=== PATIENT | male | born 1990 | race African-American/Black ===

== ENCOUNTER 2018-03-28 23:16 | Inpatient (IN) ==
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
[2018-03-29] MEDS ORDERED: Morphine Inj 4 MG/ML Vial IV.PUSH ONE (02:54)
[2018-03-29] MEDS ORDERED: Morphine Inj 4 MG/ML Vial IM ONE (02:54)
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
[2018-03-29] MEDS ORDERED: Bisacodyl 10 MG Supp RECTAL PRN (03:27)
[2018-03-29] MEDS ORDERED: Acetaminophen 325 MG Tablet PO PRN (03:27)
[2018-03-29] MEDS: Sod Chloride 0.9% Inj 1,000 ML IV.CONT SCH ×3 (04:01→22:38)
[2018-03-29 04:10] LABS: Baso % (Auto) 0.4 % (0.0-2.0); Hematocrit 35.4 % (39.0-51.0); Hemoglobin 11.7 gm/dL (13.0-17.0); Lymph % (Auto) 19.6 % (9.0-44.0); Mean Corpuscular Hemoglobin 27.6 pg (27.0-34.0); Mean Corpuscular Volume 83.7 fL (80.0-100.0); Mono % (Auto) 9.5 % (0.0-8.0); Neut # (Auto) 7.3 th/mm3 (1.8-7.7); Neut % (Auto) 70.5 % (16.0-70.0); Platelet Count 178 th/mm3 (150-450); Red Blood Count 4.23 mil/mm3 (4.50-5.90); Red Cell Distribution Width 13.3 % (11.6-17.2); White Blood Count 10.4 th/mm3 (4.0-11.0)
[2018-03-29 04:18] LABS: Activated Partial Thrombo Time 26.4 sec (24.3-30.1); INR 1.1 Ratio; Prothrombin Time 11.3 sec (9.8-11.6)
[2018-03-29 04:33] LABS: Anion Gap 8 meq/L (5-15); Blood Urea Nitrogen 8 mg/dL (7-18); Calcium 8.5 mg/dL (8.5-10.1); Chloride 109 meq/L (98-107); Glomerular Filtration Rate Greater Than 89 mL/min (>89); Glucose,Random 83 mg/dL (74-106); Potassium 3.4 meq/L (3.5-5.1); Sodium 143 meq/L (136-145)
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
[2018-03-29] MEDS: Morphine Inj 4 MG/ML Vial IV.PUSH PRN ×4 (07:45→20:19)
[2018-03-29] MEDS: Senna/Docusate Sodium 8.6/50 MG Tablet PO SCH ×2 (10:09→20:19)
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
[2018-03-29] MEDS ORDERED: Sodium Chlor 0.9% Inj 500 ML IV.SIG SCH (21:00)
[2018-03-29] MEDS ORDERED: Chlorhexidine Gluconate 2% 1 Pack (2 Cloths) TOPICAL SCH (21:00)
[2018-03-30] MEDS: Morphine Inj 4 MG/ML Vial IV.PUSH PRN ×5 (00:26→20:48)
[2018-03-30] MEDS ORDERED: Chlorhexidine Gluconate 0.12% Liq 15 ML UDC ONE (07:16)
[2018-03-30] MEDS ORDERED: Bupivacaine/Epinephrine Inj 0.25% 50 ML Vial ONE (07:17)
[2018-03-30] MEDS ORDERED: Bupivacaine/Epinephrine 0.5% Inj 50 ML Vial ONE ×2 (08:04→10:41)
[2018-03-30] MEDS ORDERED: Lidocaine 2%/Epinephrine 1:200,000 PF Inj 20 ML Vial ONE (08:05)
[2018-03-30] MEDS ORDERED: fentaNYL Citrate Inj 100 MCG/2 ML Ampul ONE (09:20)
[2018-03-30] MEDS ORDERED: Naloxone Inj 0.4 MG/ML Vial ONE (09:20)
[2018-03-30] MEDS: Senna/Docusate Sodium 8.6/50 MG Tablet PO SCH ×2 (09:29→20:02)
[2018-03-30] MEDS ORDERED: Thrombin Topical Soln 5,000 UNIT Vial TOPICAL ONE (09:56)
[2018-03-30] MEDS ORDERED: Gelatin Size 100 Topical Foam ONE (09:57)
--- NOTE | 2018-03-30 10:35 | P.OP ---
Preoperative Diagnosis: Left mandible angle fracture tooth #17 in the line of fracture Postoperative Diagnosis: carmine Date of procedure: 03/30/18 Procedure: ORIF left mandible angle fracture surgical extraction of tooth #17 Anesthesia: GETA, local (2%lidocaine with 1:100,000 epi 9cc) Surgeon: Lb Farah DMD Advertising Specialist: Jose Brower Estimated blood loss (mL): 10 Pathology: none sent
[2018-03-30] MEDS ORDERED: MethylPREDNISolone Sod Succinate Inj 125 MG/2 ML Vial ONE (10:56)
[2018-03-30] MEDS: MethylPREDNISolone Sod Succinate Inj 125 MG/2 ML Vial IV.PUSH SCH ×2 (11:00→16:33)
[2018-03-30] MEDS: Sod Chloride 0.9% Inj 1,000 ML IV.CONT SCH ×2 (11:35→20:02)
[2018-03-30] MEDS ORDERED: Sod Chloride 0.9% Inj 1,000 ML IV.SIG ONE (12:00)
[2018-03-30] MEDS ORDERED: Succinylcholine Inj 100 MG/5 ML Syringe IV.PUSH ONE (12:00)
[2018-03-30] MEDS ORDERED: Glycopyrrolate Inj 1 MG/5 ML Syringe IV.PUSH ONE (12:00)
[2018-03-30] MEDS ORDERED: Lidocaine PF 1% Inj 5 ML Syringe INFILTRATN ONE (12:00)
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
[2018-03-31] MEDS: Sod Chloride 0.9% Inj 1,000 ML IV.CONT SCH (05:46)
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
[2018-03-31 09:04] VITALS: BP 106/59; PULSE 69; RESP 17; TEMP 97.5; O2SAT 99
[2018-03-31] MEDS: Senna/Docusate Sodium 8.6/50 MG Tablet PO SCH (09:21)
== END 2018-03-31 10:28 | disposition home or self-care (01) ==
LOC: EDBD → NEPC 23:16 → NEDA 03-29 03:21 → N06 03-29 07:28
PROVIDERS: ADMIT Hospitalist; ATTEND Hospitalist
PROC: ORIFMAN (2018-03-30 07:54)

== ENCOUNTER 2018-05-11 04:33 | Inpatient (IN) ==
[2018-05-11] MEDS ORDERED: Morphine Inj 4 MG/ML Vial IV.PUSH ONE (04:49)
[2018-05-11] MEDS ORDERED: Morphine Inj 4 MG/ML Vial ONE (04:50)
[2018-05-11] MEDS ORDERED: Sod Chloride 0.9% Inj 1,000 ML IV.SIG SCH (05:00)
--- NOTE | 2018-05-11 05:09 | XR ---
EXAM DATE: 05/11/2018 4:49 AM EDT AGE/SEX: 27 years / Male INDICATIONS: Chest pain, STEMI-ALERT. CLINICAL DATA: This is the patient's initial encounter. Patient reports that signs and symptoms have been present for 1 day and indicates a pain score of 7/10. MEDICAL/SURGICAL HISTORY: None. None. COMPARISON: No prior exams available for comparison. FINDINGS: A single AP view of the chest demonstrates the lungs to be symmetrically aerated without evidence of mass, infiltrate or effusion. The cardiomediastinal contours are unremarkable. Osseous structures a re intact. CONCLUSION: No acute cardiopulmonary process. Electronically signed by: David Canales MD 05/11/2018 5:08 AM EDT
--- NOTE | 2018-05-11 05:11 | ED ---
HPI General Chief Complaint: STEMI Alert Stated Complaint: Cardiac Time Seen by Provider: 05/11/18 04:49 History of Present Illness HPI narrative: 27-year-old man presents with severe left anterior chest pain with shortness of breath, and diaphoresis, approximately 1 hour prior to arrival. He has no prior history of myocardial infarction or cardiac disease, but patient did have left jaw surgery for a fractured mandible on the left side 2 days ago, and has been having persistent discomfort in the left jaw, left neck and left chest anteriorly since his surgery, but the left chest area discomfort was of significantly less severity, although persistent and tender in the chest area, with some respiratory component. EMS was called, found patient diaphoretic and in acute distress, but vital signs were stable, and EKG reviewed and showed significant ST elevations, patient was transported as a possible STEMI chest pain. On arrival in emergency department patient was in acute discomfort, vital signs are stable, but he had marked anterior chest wall discomfort, but EKG again confirmed ST elevations in the inferior region, with 1-2 mm concave upward elevations, and in the anterior lateral lesion, but these were somewhat different character, suggestive of early repolarization, with J-point elevation and again coved upwards with upright T waves throughout. There is also some suggestion of CO depression, worrisome for pericarditis. Given patient's complicated presentation, along with confounding history of recent mandibular surgery, STEMI alert initiated, and aerial installer, Dr. Oliver, consulted emergently, and after review of x-ray, feels that this may be non- STEMI elevations, and perhaps pericarditis. Positioning changes performed to assess for supporting signs of pericarditis, the patient has significant discomfort in all positions, primarily associated with movements, rather than upright or supine position. There is no other demonstrable change in patient's discomfort. Patient medicated for discomfort, also given initial dose of 324 mg of aspirin. STEMI alert cancelled and remaining care proceeded per normal ED evaluation. Further Related Data Home Medications Medication Instructions Recorded Confirmed No Known Home Medications 05/11/18 05/11/18 Allergies Allergy/AdvReac Type Severity Reaction Status Date / Time No Known Allergies Allergy Unverified 03/29/18 00:05 Review of Systems ROS: all other systems reviewed are negative Constitutional Denies chills and Reports difficulty sleeping ENT Reports facial pain (recent jaw surgery, persistent pain and swelling left mandible) Cardiovascular Reports chest pain (left anterior chest, 2 days; new severe pains onset immediately prior to arrival) Respiratory Denies cough, Reports pain on inspiration, Reports dyspnea and Denies stridor Gastrointestinal Reports system reviewed and no additional complaints, except as docu [facility] Medical History Medical History Patient denies medical problems (Acute) Surgical History Surgical History No history of previous surgery (Acute) Social History Social History Substance History: Active Abuse Second Hand Smoke Exposure: Yes Smoking Status: Current every day smoker Tobacco Type: Cigarettes How Often Do You Have a Drink Containing Alcohol: Never Recent Travel in [facility] within the Last 8 Weeks: No Recent Out of Country Travel within the Last 8 Weeks: No Substance Abuse Detail Marijuana: Substance Use Status: Active Route Used Substance Abuse: Inhalation Immunization History Tetanus Immunization: <5 Years Tetanus Immunization Year if Known: 2018 Hx Influenza Vaccine This Season: No Exam Narrative Exam Narrative: GENERAL: Thin young adult male, well-developed, well-nourished, vital signs are stable, in obvious distress, From pain in jaw and chest. SKIN: Focused skin assessment warm/dry. HEAD: Atraumatic. Normocephalic. EYES: Pupils equal and round. No scleral icterus. No injection or drainage. ENT: Marked left facial pain and swelling, exquisitely tender to palpation in area of recent surgery. No fluctuance, no drainage. No nasal bleeding or discharge. Mucous membranes pink and moist. NECK: Left lateral cervical muscular tenderness to palpationTrachea midline. No JVD. CARDIOVASCULAR: Regular rate and rhythm. No murmur appreciated. CHEST: marked left anterior chest wall tenderness to palpation left pectoralis muscle, extending medially to the sternum. No bony defects, no crepitus RESPIRATORY: No accessory muscle use. Clear to auscultation. Breath sounds equal bilaterally. GASTROINTESTINAL: Abdomen soft, non-tender, nondistended. Hepatic and splenic margins not palpable. MUSCULOSKELETAL: No obvious deformities. No clubbing. No cyanosis. No edema. NEUROLOGICAL: Awake and alert. No obvious cranial nerve deficits. Motor grossly within normal limits. Normal speech. PSYCHIATRIC: Appropriate mood and affect; insight and judgment normal. Course Reevaluation(s) Reevaluation #1: Much more comfortably, asleep at time of examination, discussed results of first round of troponin testing, which was negative. Findings discussed with Dr. Oliver, on-call aerial installer, and we will admit patient for observation for remainder of rule out testing. Time: 06:43 Initial Documented Vital Signs Temperature 98.9 F 05/11/18 04:36 Pulse Rate 109 H 05/11/18 04:36 Respiratory Rate 20 05/11/18 04:36 Blood Pressure 143/83 H 05/11/18 04:36 Pulse Oximetry 98 05/11/18 04:36 Last Documented Vital Signs Temperature 98.9 F 05/11/18 04:36 Pulse Rate 94 H 05/11/18 07:00 Respiratory Rate 16 05/11/18 07:31 Blood Pressure 138/75 05/11/18 07:00 Pulse Oximetry 2 L 05/11/18 07:00 Medical Decision Making MDM Narrative Medical decision making narrative: 27-year-old man with recent jaw surgery has been having minor chest pain over the past couple of days since his operation, but awakened with severe left anterior chest pain and diaphoresis, and had ST elevation found by EMS, with the additional concern for STEMI. Consultation with aerial installer suggest that this may be pericarditis, and ST elevations in the precordial leads suggestive of benign early repolarization, and inferior leads likely reflective of reciprocal changes, but not clearly definitive for STEMI. Initial troponin level was negative, remainder of laboratory evaluation unremarkable, patient's pain controlled with intravenous morphine, and patient was napping comfortably on recheck at 0630 hrs. Findings discussed with on- call aerial installer, Dr. Oliver, and we will limit patient for observation for remainder of cardiac rule out testing. Medical Screen Exam Complete: Yes Emergency Medical Condition: Yes Lab Data Result diagrams: 05/11/18 04:45 Lab Results 05/11/18 05/11/18 05/11/18 Range/Units 04:45 04:45 04:45 WBC 16.5 H (4.0-11.0) th/mm3 RBC 4.64 (4.50-5.90) mil/mm3 Hgb 12.5 L (13.0-17.0) gm/dL POC Hgb (Calc) 12.9 L (13.0-17.0) g/dL Hct 39.6 (39.0-51.0) % POC Hct 38.0 L (39-51.0) % MCV 85.5 (80.0-100.0) fL MCH 27.0 (27.0-34.0) pg MCHC 31.6 L (32.0-36.0) % RDW 13.7 (11.6-17.2) % Plt Count 222 (150-450) th/mm3 MPV 9.8 (7.0-11.0) fL Neut % (Auto) 86.5 H (16.0-70.0) % Lymph % (Auto) 2.9 L (9.0-44.0) % [place] % (Auto) 10.4 H (0.0-8.0) % Eos % (Auto) 0.1 (0.0-4.0) % Baso % (Auto) 0.1 (0.0-2.0) % Neut # (Auto) 14.3 H (1.8-7.7) th/mm3 Lymph # (Auto) 0.5 L (1.0-4.8) th/mm3 [place] # (Auto) 1.7 H (0.0-0.9) th/mm3 Eos # (Auto) 0.0 (0.0-0.4) th/mm3 Baso # (Auto) 0.0 (0.0-0.2) th/mm3 WBC Differential . Differential Comment Auto diff final PT 12.1 H (9.8-11.6) sec INR 1.2 Ratio APTT 38.2 H (24.3-30.1) sec POC Sodium 137 (137-144) mmol/L POC Potassium 3.9 (3.6-5.0) mmol/L POC Chloride 102 (102-111) mmol/L POC BUN 13 (5-21) mg/dL POC Creatinine 0.8 (0.6-1.3) mg/dL POC Glucose 131 H (68-110) mg/dL Calcium 8.7 (8.5-10.1) mg/dL Magnesium 2.2 (1.5-2.5) mg/dL Total Creatine Kinase 152 (39-308) U/L CK-MB (CK-2) Less than 1.0 (0.5-3.6) ng/mL Troponin I Less than 0.02 L (0.02-0.05) ng/mL B-Natriuretic Peptide (0-100) pg/mL 05/11/18 Range/Units 04:45 WBC (4.0-11.0) th/mm3 RBC (4.50-5.90) mil/mm3 Hgb (13.0-17.0) gm/dL POC Hgb (Calc) (13.0-17.0) g/dL Hct (39.0-51.0) % POC Hct (39-51.0) % MCV (80.0-100.0) fL MCH (27.0-34.0) pg MCHC (32.0-36.0) % RDW (11.6-17.2) % Plt Count (150-450) th/mm3 MPV (7.0-11.0) fL Neut % (Auto) (16.0-70.0) % Lymph % (Auto) (9.0-44.0) % Swift % (Auto) (0.0-8.0) % Eos % (Auto) (0.0-4.0) % Baso % (Auto) (0.0-2.0) % Neut # (Auto) (1.8-7.7) th/mm3 Lymph # (Auto) (1.0-4.8) th/mm3 [place] # (Auto) (0.0-0.9) th/mm3 Eos # (Auto) (0.0-0.4) th/mm3 Baso # (Auto) (0.0-0.2) th/mm3 WBC Differential Differential Comment PT (9.8-11.6) sec INR Ratio APTT (24.3-30.1) sec POC Sodium (137-144) mmol/L POC Potassium (3.6-5.0) mmol/L POC Chloride (102-111) mmol/L POC BUN (5-21) mg/dL POC Creatinine (0.6-1.3) mg/dL POC Glucose (68-110) mg/dL Calcium (8.5-10.1) mg/dL Magnesium (1.5-2.5) mg/dL Total Creatine Kinase (39-308) U/L CK-MB (CK-2) (0.5-3.6) ng/mL Troponin I (0.02-0.05) ng/mL B-Natriuretic Peptide 37 (0-100) pg/mL Imaging Data Radiologist's impression: Chest X-Ray 05/11/18 04:49 CONCLUSION: No acute cardiopulmonary process. Discharge Plan Discharge Disposition Patient Disposition: 28 Still Patient Discharge Condition Condition: Stable Discharge Details Diagnosis: Atypical chest pain Physicians Team ED Provider: Carlos Davis Primary Care Provider: Primary Care May Costello Attending Provider: Jd Tenorio Other Providers: Galo Dunlap ED Status: Admitted Observation Patient
[2018-05-11 05:13] LABS: Baso % (Auto) 0.1 % (0.0-2.0); Eos % (Auto) 0.1 % (0.0-4.0); Hematocrit 39.6 % (39.0-51.0); Hemoglobin 12.5 gm/dL (13.0-17.0); Lymph # (Auto) 0.5 th/mm3 (1.0-4.8); Lymph % (Auto) 2.9 % (9.0-44.0); Mean Corpuscular HGB Conc 31.6 % (32.0-36.0); Mean Corpuscular Volume 85.5 fL (80.0-100.0); Mean Platelet Volume 9.8 fL (7.0-11.0); Mono # (Auto) 1.7 th/mm3 (0.0-0.9); Mono % (Auto) 10.4 % (0.0-8.0); Neut # (Auto) 14.3 th/mm3 (1.8-7.7); Neut % (Auto) 86.5 % (16.0-70.0); Platelet Count 222 th/mm3 (150-450); Red Blood Count 4.64 mil/mm3 (4.50-5.90); Red Cell Distribution Width 13.7 % (11.6-17.2); White Blood Count 16.5 th/mm3 (4.0-11.0)
[2018-05-11 05:25] LABS: Activated Partial Thrombo Time 38.2 sec (24.3-30.1); INR 1.2 Ratio; Prothrombin Time 12.1 sec (9.8-11.6)
[2018-05-11 05:27] LABS: Calcium 8.7 mg/dL (8.5-10.1)
[2018-05-11 05:33] LABS: Magnesium 2.2 mg/dL (1.5-2.5)
[2018-05-11 05:35] LABS: Creatine Kinase 152 U/L (39-308)
[2018-05-11] MEDS ORDERED: Morphine Inj 4 MG/ML Vial IV.PUSH PRN (07:46)
[2018-05-11] MEDS: Ketorolac Inj 30 MG/ML (IVP) Vial IV.PUSH PRN (08:05)
--- NOTE | 2018-05-11 09:45 | ECG ---
Date Performed: 05/11/2018 Time Performed: 04:38:33 PTAGE: 27 years EKG: SINUS TACHYCARDIA MARKED ST ELEVATION, CONSIDER INFERIOR AND ANTEROLATERAL INJURY ACUTE FL NO PREVIOUS TRACING DOCTOR: Oziel Quarles Interpretating Date/Time 05/11/2018 09:44:47
[2018-05-11 09:50] LABS: Creatine Kinase 117 U/L (39-308)
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
--- NOTE | 2018-05-11 11:50 | ECG ---
Date Performed: 05/11/2018 Time Performed: 09:22:55 PTAGE: 27 years EKG: Sinus rhythm PROBABLE EARLY REPOLARIZATION BORDERLINE ECG No significant change from prior electrocardiogram. PREVIOUS TRACING : 05/11/2018 04.38 DOCTOR: Oziel Quarles Interpretating Date/Time 05/11/2018 11:49:31
[2018-05-11] MEDS: Vancomycin Inj 1,000 MG in Sodium Chlor 0.9% Inj 250 ML IV.SIG SCH (13:46)
[2018-05-11 15:12] LABS: Creatine Kinase 93 U/L (39-308)
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
[2018-05-11] MEDS: Ampicillin/Sulbactam Inj 3 GM in Sodium Chloride 0.9% Inj 100 ML IV.SIG SCH ×2 (15:41→21:23)
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
[2018-05-11] MEDS ORDERED: Lidocaine 1%/Epinephrine 1:200,000 PF Inj 30 ML Vial I-DERMAL SCH (18:00)
[2018-05-11] MEDS ORDERED: Lidocaine 1%/Epinephrine 1:100,000 Inj 30 ML Vial I-DERMAL SCH (18:00)
--- NOTE | 2018-05-11 18:08 | CT ---
EXAM DATE: 05/11/2018 4:36 PM EDT AGE/SEX: 27 years / Male INDICATIONS: Abscess pain and swelling. CLINICAL DATA: This is the patient's initial encounter. Patient reports that signs and symptoms have been present for 1 day and indicates a pain score of 10/10. MEDICAL/SURGICAL HISTORY: . Mandible fracture . Mandible surgery RADIATION DOSE: 15.38 CTDI (mGy) COMPARISON: No prior exams available for comparison. TECHNIQUE: Helical acquisition was performed using a multirow detector CT scanner during the adminis tration of 70ML ml Omnipaque 350 (iohexol) nonionic water-soluble contrast as a single exam dose. U sing automated exposure control and adjustment of the mA and/or kV according to patient size, radiati on dose was kept as low as reasonably achievable to obtain optimal diagnostic quality images. DICOM format image data is available electronically for review and comparison. FINDINGS: There is a large ill-defined abscess with low-density fluid areas and abnormal surrounding enhancemen t extending from the left angle of the mandible down to the hyoid bone. This measures up to at least 6 x 6 cm in greatest diameter. This involves the left parapharyngeal soft tissues which are markedly prominent with mass effect and midline shift of the airway to the right. The left posterior preverteb ral soft tissues are abnormally prominent as well. Abscess appears to involve the left base of the to ngue may extend close to midline. There is a screw-plate fixation device along the left side of the mandible with loss of portions of the medial cortex of the mandible. This is best seen on axial image #47. The other bony structures ar e intact. Emphysema and bullous changes are noted in the upper lobes. The thyroid gland is unremarkable in appe arance. CONCLUSION: 1. Large left sided neck abscess with significant mass effect and shift of the airway to the right 2. Screw-plate fixation device along the left side of the mandible with findings of concern for foca l osteomyelitis. Electronically signed by: Cy Murray MD 05/11/2018 6:07 PM EDT
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
[2018-05-11] MEDS: Acetaminophen 325 MG Tablet PO PRN (21:20)
[2018-05-12] MEDS: Ketorolac Inj 30 MG/ML (IVP) Vial IV.PUSH PRN ×3 (00:34→15:23)
[2018-05-12] MEDS: Ampicillin/Sulbactam Inj 3 GM in Sodium Chloride 0.9% Inj 100 ML IV.SIG SCH ×4 (02:09→21:14)
[2018-05-12 05:04] LABS: Hematocrit 37.6 % (39.0-51.0); Mean Corpuscular HGB Conc 31.9 % (32.0-36.0); Mean Corpuscular Hemoglobin 27.2 pg (27.0-34.0); Mean Corpuscular Volume 85.3 fL (80.0-100.0); Mean Platelet Volume 9.2 fL (7.0-11.0); Platelet Count 245 th/mm3 (150-450); Red Blood Count 4.41 mil/mm3 (4.50-5.90); Red Cell Distribution Width 14.6 % (11.6-17.2)
[2018-05-12 05:26] LABS: Anion Gap 10 meq/L (5-15); Blood Urea Nitrogen 10 mg/dL (7-18); Calcium 8.6 mg/dL (8.5-10.1); Carbon Dioxide 23.5 meq/L (21.0-32.0); Chloride 106 meq/L (98-107); Glomerular Filtration Rate Greater Than 89 mL/min (>89); Glucose,Random 104 mg/dL (74-106); Potassium 3.8 meq/L (3.5-5.1); Sodium 139 meq/L (136-145)
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
[2018-05-12 11:34] LABS: Baso % (Auto) 0.3 % (0.0-2.0); Eos % (Auto) 0.1 % (0.0-4.0); Hematocrit 36.6 % (39.0-51.0); Hemoglobin 11.7 gm/dL (13.0-17.0); Lymph # (Auto) 0.5 th/mm3 (1.0-4.8); Lymph % (Auto) 3.6 % (9.0-44.0); Mean Corpuscular HGB Conc 31.9 % (32.0-36.0); Mean Corpuscular Hemoglobin 27.2 pg (27.0-34.0); Mean Corpuscular Volume 85.4 fL (80.0-100.0); Mean Platelet Volume 9.1 fL (7.0-11.0); Mono # (Auto) 1.2 th/mm3 (0.0-0.9); Mono % (Auto) 8.4 % (0.0-8.0); Neut # (Auto) 12.9 th/mm3 (1.8-7.7); Neut % (Auto) 87.6 % (16.0-70.0); Platelet Count 249 th/mm3 (150-450); Red Blood Count 4.29 mil/mm3 (4.50-5.90); Red Cell Distribution Width 14.2 % (11.6-17.2); White Blood Count 14.8 th/mm3 (4.0-11.0)
[2018-05-12 13:11] LABS: Lymphocytes 5 % (9-44); Monocytes 4 % (0-8)
[2018-05-12 13:12] LABS: Dohle Bodies Present; Platelet Estimate Normal (Normal); Platelet Morphology Normal (Normal); Toxic Granulation 1+
--- NOTE | 2018-05-12 14:10 | ECHRPT ---
Indication: chest pain , r/o pericarditis CONCLUSIONS Normal left ventricular size. Wall thickness is normal. The left ventricular systolic function is normal with an estimated ejection fraction in the range of 55-60%. There is trace tricuspid valve regurgitation. The estimated pulmonary arterial pressure is 29 mmHg. pericardium adjacent to posterior and inferior wall appears echogenic possibly consistent with regio nal pericarditis BP: / HR: Rhythm: MEASUREMENTS (Male / Female) Normal Values Technical Quality: 2D ECHO LV Diastolic Diameter PLAX 3.8 cm 4.2 - 5.9 / 3.9 - 5.3 cm LV Systolic Diameter PLAX 2.8 cm IVS Diastolic Thickness 0.9 cm 0.6 - 1.0 / 0.6 - 0.9 cm LVPW Diastolic Thickness 0.9 cm 0.6 - 1.0 / 0.6 - 0.9 cm LV Relative Wall Thickness 0.5 RV Internal Dim ED PLAX 2.8 cm LVOT Diameter 2.2 cm DOPPLER AV Peak Velocity 134.0 cm/s AV Peak Gradient 7.2 mmHg LVOT Peak Velocity 115.0 cm/s LVOT Peak Gradient 5.3 mmHg AV Area Cont Eq pk 3.3 cm Mitral E Point Velocity 91.3 cm/s Mitral A Point Velocity 57.3 cm/s Mitral E to A Ratio 1.6 TR Peak Velocity 220.0 cm/s TR Peak Gradient 19.4 mmHg Right Atrial Pressure 10.0 mmHg Pulmonary Artery Systolic Pressu 29.4 mmHg Right Ventricular Systolic Press 29.4 mmHg PV Peak Velocity 118.0 cm/s PV Peak Gradient 5.6 mmHg FINDINGS LEFT VENTRICLE Normal left ventricular size. Wall thickness is normal. The left ventricular systolic function is normal with an estimated ejection fraction in the range of 55-60%. RIGHT VENTRICLE Normal right ventricular size and systolic function. LEFT ATRIUM The left atrial size is normal. RIGHT ATRIUM The right atrial size is normal. ATRIAL SEPTUM Normal atrial septal thickness without atrial level shunting by limited color doppler interrogation. AORTA The aortic root and proximal ascending aorta are normal in size on limited imaging. MITRAL VALVE Structurally normal mitral valve. No mitral valve stenosis or regurgitation. AORTIC VALVE Trileaflet aortic valve. No aortic valve stenosis or regurgitation. TRICUSPID VALVE There is trace tricuspid valve regurgitation. The estimated pulmonary arterial pressure is 29 mmHg. PULMONARY VALVE No pulmonary valve regurgitation or stenosis. VESSELS The inferior vena cava is normal in size. PERICARDIUM No pericardial effusion. Isaías Howell MD, FACC, FSCAI (Electronically Signed) Final Date:12 May 2018 14:09
[2018-05-12] MEDS: Vancomycin Inj 1,000 MG in Sodium Chlor 0.9% Inj 250 ML IV.SIG SCH (15:00)
[2018-05-12] MEDS: Acetaminophen 325 MG Tablet PO PRN (15:23)
[2018-05-12] MEDS: Sod Chloride 0.9% Inj 1,000 ML IV.CONT SCH (17:27)
[2018-05-12 20:41] LABS: Bacteria,Urine Few /hpf; Clarity,Urine Clear (Clear); Color,Urine Amber (Yellw/Straw); Glucose,Urine (UA) 50 mg/dL (Negative); Leukocyte Esterase,Urine Negative (Negative); Mucus,Urine Few /lpf (Occasional); Nitrite,Urine Negative (Negative); Specific Gravity,Urine 1.025 (1.002-1.035); Squamous Epithelial Cell,Urine 1 /hpf (0-5); Urobilinogen,Urine 4 or Greater mg/dL (Less than 2)
[2018-05-12 20:53] LABS: Bilirubin,Urine Negative (Negative); Ictotest,Urine Negative (Negative)
[2018-05-13 01:37] LABS: Amphetamine Urine With Conf Neg (Neg); Barbiturate Urine With Conf Neg (Neg); Benzodiazepine Urine With Conf Neg (Neg)
[2018-05-13] MEDS: Ketorolac Inj 30 MG/ML (IVP) Vial IV.PUSH PRN (03:27)
[2018-05-13] MEDS: Ampicillin/Sulbactam Inj 3 GM in Sodium Chloride 0.9% Inj 100 ML IV.SIG SCH ×4 (03:27→20:38)
[2018-05-13] MEDS: Sod Chloride 0.9% Inj 1,000 ML IV.CONT SCH ×2 (03:56→17:27)
[2018-05-13 05:45] LABS: Baso % (Auto) 0.2 % (0.0-2.0); Hematocrit 34.8 % (39.0-51.0); Lymph % (Auto) 4.8 % (9.0-44.0); Mean Corpuscular HGB Conc 31.6 % (32.0-36.0); Mean Corpuscular Hemoglobin 26.8 pg (27.0-34.0); Mean Corpuscular Volume 84.9 fL (80.0-100.0); Mean Platelet Volume 9.5 fL (7.0-11.0); Mono # (Auto) 2.7 th/mm3 (0.0-0.9); Mono % (Auto) 12.7 % (0.0-8.0); Neut # (Auto) 17.2 th/mm3 (1.8-7.7); Neut % (Auto) 82.3 % (16.0-70.0); Platelet Count 273 th/mm3 (150-450); Red Cell Distribution Width 14.7 % (11.6-17.2)
[2018-05-13 06:16] LABS: Anion Gap 12 meq/L (5-15); Blood Urea Nitrogen 12 mg/dL (7-18); Calcium 8.2 mg/dL (8.5-10.1); Chloride 107 meq/L (98-107); Glomerular Filtration Rate Greater Than 89 mL/min (>89); Glucose,Random 81 mg/dL (74-106); Potassium 3.2 meq/L (3.5-5.1); Sodium 140 meq/L (136-145)
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
--- NOTE | 2018-05-13 10:13 | CT ---
EXAM DATE: 05/13/2018 8:37 AM EDT AGE/SEX: 27 years / Male INDICATIONS: Mandible abscess. CLINICAL DATA: This is the patient's initial encounter. Patient reports that signs and symptoms have been present for 1 month and indicates a pain score of 0/10. MEDICAL/SURGICAL HISTORY: None. . ORIF left mandible RADIATION DOSE: 14.28 CTDI (mGy) COMPARISON: [facility] [place], CT SOFT TISSUE NECK W/O CONTRAST, 05/11/2018. . TECHNIQUE: Helical acquisition was performed using a multirow detector CT scanner during the adminis tration of 55 ml Omnipaque 350 (iohexol) nonionic water-soluble contrast as a single exam dose. Usi ng automated exposure control and adjustment of the mA and/or kV according to patient size, radiation dose was kept as low as reasonably achievable to obtain optimal diagnostic quality images. DICOM fo rmat image data is available electronically for review and comparison. FINDINGS: There is evidence of a persistent fluid collection within the superior mediastinum which is indetermi vazquez. Clinical correlation is recommended to rule out mediastinal abscess. The fluid tracks along the left carotid space and appears to communicate with the left neck collection. There has been some int erval improvement of the large left-sided neck abscess with residual fluid and air is noted within th e location of the previously noted collection. Fluid and air extends into the left parapharyngeal spa ce as well as inferiorly into the left submandibular space and surrounds the left submandibular gland . There is still some shift of the airway to the right but this has also improved slightly compared t o the previous examination. Erosive changes involving the left mandible are stable. Hardware is again noted within the left mandible. Scattered fibrotic scarring and emphysematous changes are noted with in the lung apices. CONCLUSION: 1. There is evidence of a persistent fluid collection within the superior mediastinum which is indet erminate. Clinical correlation is recommended to rule out mediastinal abscess. The fluid tracks along the left carotid space and appears to communicate with the left neck collection. 2. Some interval improvement of the large left-sided neck abscess with some residual fluid and air n oted within the location of the previously noted collection extending into the left parapharyngeal sp nilsa and inferiorly into the left submandibular space. There is slight persistent shift of the airway to the right which is also improved compared to previous examination. Erosive changes involving the l eft mandible are stable. Electronically signed by: Elio Vasquez MD 05/13/2018 10:12 AM EDT
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
[2018-05-13] MEDS ORDERED: Lidocaine 2%/Epinephrine 1:200,000 PF Inj 20 ML Vial ONE (14:21)
[2018-05-13] MEDS ORDERED: Chlorhexidine Gluconate 0.12% Liq 15 ML UDC ONE (14:21)
[2018-05-13] MEDS ORDERED: Metoprolol Tartrate 25 MG Tablet PO ONE (16:00)
[2018-05-13] MEDS ORDERED: Sodium Chlor 0.9% Inj 500 ML IV.CONT ONE (16:00)
[2018-05-13] MEDS ORDERED: Phenylephrine/NS 1000 MCG/10ML Syringe IV.PUSH ONE (16:00)
[2018-05-13] MEDS ORDERED: Chlorhexidine Gluconate 2% 1 Pack (2 Cloths) TOPICAL ONE (16:00)
[2018-05-13] MEDS ORDERED: Glycopyrrolate Inj 1 MG/5 ML Syringe IV.PUSH ONE (16:00)
[2018-05-13] MEDS ORDERED: Lidocaine PF 1% Inj 5 ML Syringe OTHER ONE (16:00)
[2018-05-13] MEDS ORDERED: Neostigmine Inj 5 MG/5 ML Syringe IV.PUSH ONE (16:00)
[2018-05-13] MEDS: Vancomycin Inj 1,000 MG in Sodium Chlor 0.9% Inj 250 ML IV.SIG SCH (16:27)
[2018-05-13] MEDS: Microfibrillar Collagen Hemostat 1 GM Packet TOPICAL ONE ×2 (16:31→16:50)
[2018-05-13] MEDS ORDERED: fentaNYL Citrate Inj 100 MCG/2 ML Ampul ONE (17:46)
--- NOTE | 2018-05-13 22:16 | ECG ---
Date Performed: 05/13/2018 Time Performed: 13:38:57 PTAGE: 27 years EKG: SINUS TACHYCARDIA BORDERLINE RIGHT AXIS DEVIATION DIFFUSE ST ELEVATION PREVIOUS TRACING : 05/11/2018 09.22 Since the previous tracing, no significant change not ed DOCTOR: Fox Robbins Interpretating Date/Time 05/13/2018 22:15:44
[2018-05-14] MEDS: Ampicillin/Sulbactam Inj 3 GM in Sodium Chloride 0.9% Inj 100 ML IV.SIG SCH ×4 (02:27→20:08)
[2018-05-14 06:29] LABS: Baso % (Auto) 0.1 % (0.0-2.0); Hematocrit 33.1 % (39.0-51.0); Hemoglobin 10.5 gm/dL (13.0-17.0); Lymph # (Auto) 0.9 th/mm3 (1.0-4.8); Lymph % (Auto) 4.5 % (9.0-44.0); Mean Corpuscular HGB Conc 31.7 % (32.0-36.0); Mean Corpuscular Hemoglobin 26.8 pg (27.0-34.0); Mean Corpuscular Volume 84.6 fL (80.0-100.0); Mean Platelet Volume 9.1 fL (7.0-11.0); Mono # (Auto) 1.6 th/mm3 (0.0-0.9); Mono % (Auto) 7.5 % (0.0-8.0); Neut # (Auto) 18.2 th/mm3 (1.8-7.7); Neut % (Auto) 87.9 % (16.0-70.0); Platelet Count 305 th/mm3 (150-450); Red Blood Count 3.92 mil/mm3 (4.50-5.90); Red Cell Distribution Width 14.6 % (11.6-17.2); White Blood Count 20.7 th/mm3 (4.0-11.0)
[2018-05-14] MEDS: Sod Chloride 0.9% Inj 1,000 ML IV.CONT SCH ×2 (06:35→16:44)
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
[2018-05-14 07:49] LABS: Dohle Bodies Present; Lymphocytes 1 % (9-44); Monocytes 7 % (0-8); Myelocytes 1 % (0-0); Platelet Estimate Normal (Normal); Platelet Morphology Normal (Normal)
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
--- NOTE | 2018-05-14 10:38 | MP ---
cc: Lb Farah DMD DATE OF OPERATION: 05/13/2018 PREOPERATIVE DIAGNOSIS: Left mandibular abscess. POSTOPERATIVE DIAGNOSIS: Left mandibular abscess. PROCEDURE PERFORMED: Examination under anesthesia, incision, drainage and debridement of the left mandibular abscess in the fracture region site, and stabilization of the left mandibular fracture with IMF screws. ANESTHESIA: General, also, 2% lidocaine with 1:200,000 epinephrine, approximately 11 mL. SURGEON: Lb Farah DMD. BRAID PATTERN SETTER: Jose Brower. COMPLICATIONS: None. DISPOSITION: The patient tolerated the procedure well. PROCEDURE FINDINGS: No osteomyelitis. No pus noted. Plate/hardware/stable. No nonunion noted, superior border of the fractures mild flexion that is noted. INDICATIONS FOR PROCEDURE: Mr. Garzon had his open reduction and internal fixation of left mandible angle fracture done in 03/30/2018. Subsequently, did not follow up in our office. He continues to smoke and continues to do illicit drug use. He presented to the hospital a few days ago with swelling on the left side of his mouth/jaw. Dr. Ulloa I and D'd him at bedside. I had seen him on 05/12/2018 in the morning. The patient felt better, decrease in size of the swelling. Iodoform gauze was left in place. On 05/13/2018, I have seen him. He clinically appeared to be much better. There is no elevation of floor of the mouth or the tongue. Swelling was decreased. However, his white count went up to 21,000. A CT scan of the neck soft tissues repeat was done. It showed some areas of collection noted, also down to the mediastinum. Cardiothoracic was also consulted and I spoke with Dr. Sarah Lara, who said that there was no surgical intervention needed. I did speak to Dr. Callahan, his attending also. Clinically, he has no neck edema and trachea is at midline. There is no crepitus or any tenderness on his chest. No edema or anything like that. So, the plan is to take the patient to the operating room, do an examination under anesthesia, check the stability of the plate, the fracture site, and drain any residual pus, debride that site. Benefits, risks, indications of the procedure, procedure in detail, the option of no treatment at all were discussed with this patient. Risks not limited to any postoperative pain, infection, bleeding, damage to adjacent soft tissue, hard tissue, anesthesia complications, recurrence of the procedure, if the patient is noncompliant. All questions and concerns were addressed. The patient was aware that he may be wired closed, if needed. PROCEDURE IN DETAIL: The patient was met preoperatively. All questions and concerns were addressed. Consent was signed and in the chart. Site on the left side of the face was marked. The patient was taken to the operating suite, placed on the table in the supine position. He was orally intubated. The eyes were taped shut. All pressure points were padded. At this time, a timeout was taken to identify the patient, side of the procedure, surgery. All were in agreement. Betadine prep was done. A bite block was placed in the mouth, back of throat was suctioned. Examination under anesthesia did not show any deviation of the uvula or any posterior airway compromise. No swelling in the posterior oropharynx. There was no elevation of floor of the mouth or the tongue. No intraoral vestibular edema noted. Bite and the patient's occlusion, which he already has a malocclusion. Crossbite. Appears to have some [id number] in the front. Then, 2% lidocaine with 1:200,000 epinephrine was injected, inferior vena blocks and again around the area of the incision site, which was planned for the buccal lateral aspect of the mandible posteriorly, coming up to the molars. Note, that there was a wound dehiscence noted from the molar all the way going back to the posterior site. I could see the bone there. It does not have good oral hygiene at this point. Local anesthetic was injected in the submandibular region also. Back of throat was suctioned. A moistened Ray-Manish was used as a throat pack. A Bovie was used to go back in the region of the area of the wound that was already opened the dehiscence and extended that. Periosteal elevator was taken down to the plate, and down to the inferior border of the mandible, going lateral aspect, going posteriorly toward the angle. Trying to manipulate the plate, it appeared stable. The bone looked healthy and bleeding. There was granulation tissue and an irregular bony contour on the superior aspect, where the tooth #17 was extracted. There was some flexion of the bone into that site, but as I go down inferiorly towards the angle of the mandible using the periosteal elevator, I was trying to separate that bone from that plate, and appears that I am not able to do so, appeared stable at this point. Then, moved the bite block and started to manipulate the mandible anteriorly, posteriorly, laterally. The whole mandible was moving in synchrony, in unison. Also placed my hand, and palpated the temporomandibular joint on the left side. Again, I tried to manipulate the the joint, and I am able to move and feel the movement of the temporomandibular joint, as the mandible was moving in unison. There was no false point of motion that was noted at this point. So, at this point, there was no pus noted. Irrigated the site with saline solution. Note, that prior to proceeding with the procedure, mouth was irrigated with Peridex solution. I then took the periosteum back to the lingual aspect of the posterior parapharyngeal plates, going to the medial aspect of the mandible, going towards the angle. Again, no pus noted coming out at the site,. Irrigated all that site with saline solution. I took a football-shaped bur, smoothing out the bone, and removed some of the granulation tissue out. Nice, good healthy bleeding bone was noted. No pus again was noted. We went to the outside, the origin of the existing incision site, took the hemostat and no pus noted. Irrigated with saline and then made, one in the submandibular region, going straight up to the inferior border of the mandible lingually and buccally, again, no pus noted. Irrigated that with saline solution. Put a 1/4 inch [place] drain through the external site from the original incision, I and D site, and then again 1 from where I went in the submandibular region. Secured that into position using 2-0 silk sutures. Irrigated that again with saline solution, and then I came back intraorally, irrigated the mouth again with saline solution, and closed intraorally with 3-0 Vicryl. Then, at this point, since I suspected some flexion of the superior aspect of the mandible, it appears that patient is probably noncompliant and chewing more than what he should be, so at this point, I decided to place 4 IMF screws between the lateral and the canine, back to the maxillary region to the mandibular region. Once this was done, back of the throat was suctioned. The throat pack was removed. Bite block was removed. Waited for the patient to be extubated. Then, when the patient is still under anesthesia with propofol, we put the 24-gauge wires through these IMF loops and wired his jaw into intermaxillary fixation. However, when the patient began to wake up a little bit more, alert, coherent, he began to open his mouth and that began loosening of the wires, and at that point, did not feel comfortable. So, at this point, we cut out the wires as the patient began to get combative. We will plan to put him at intermaxillary fixation at bedside in the morning of 05/14/2018. No cultures noted as there is was no pus. The patient tolerated the procedure well. No complications noted. All sponge and needle counts were accounted for at the end of the case. Note, that dressing with 4 x4 and Shannan was placed on the outside where the incision and drainage was done. ALEXANDRU Stanley/chuck , 07:40 AM , 07:59 AM
[2018-05-14 12:00] LABS: Baso % (Auto) 0.1 % (0.0-2.0); Hematocrit 33.3 % (39.0-51.0); Hemoglobin 10.5 gm/dL (13.0-17.0); Lymph # (Auto) 1.1 th/mm3 (1.0-4.8); Mean Corpuscular HGB Conc 31.4 % (32.0-36.0); Mean Corpuscular Hemoglobin 26.8 pg (27.0-34.0); Mean Corpuscular Volume 85.4 fL (80.0-100.0); Mean Platelet Volume 9.1 fL (7.0-11.0); Mono # (Auto) 2.2 th/mm3 (0.0-0.9); Neut # (Auto) 18.6 th/mm3 (1.8-7.7); Neut % (Auto) 84.9 % (16.0-70.0); Platelet Count 321 th/mm3 (150-450); Red Cell Distribution Width 14.6 % (11.6-17.2); White Blood Count 21.9 th/mm3 (4.0-11.0)
[2018-05-14] MEDS: Ibuprofen Liq 100 MG/5 ML UDC PO SCH (18:09)
[2018-05-15] MEDS: Ibuprofen Liq 100 MG/5 ML UDC PO SCH ×2 (01:25→10:38)
[2018-05-15] MEDS: Ampicillin/Sulbactam Inj 3 GM in Sodium Chloride 0.9% Inj 100 ML IV.SIG SCH ×2 (01:27→08:51)
[2018-05-15] MEDS: Sod Chloride 0.9% Inj 1,000 ML IV.CONT SCH (03:05)
[2018-05-15 04:49] VITALS: BP 119/61
--- NOTE | 2018-05-15 07:41 | P.PN ---
Subjective Interval history: POD 2 s/p exam under aneshtesia, I&D left mandible abscess, debridement of left mandible fracture and stabilization of left mandible fractue iwth IMF screws POD 4 s/p i/d left mandible abscess - Dr. Ulloa s/p orif left mandible angle fracture and extraction of tooth #28 march 2018 pt seen and examined this morning- wants to go home /school aaox3, nad, denies f/c/n/v/sob/difficulty breathing /difficulty swallowing tolerating po well,ambulating, voiding reports feeling much better Physical Exam Vital signs: Vital Signs 05/14/18 08:00 05/14/18 12:00 05/14/18 16:00 Temperature 97.5 F L 97.5 F L 97.2 F L Pulse Rate 75 59 L 78 Respiratory Rate 18 20 18 Blood Pressure 136/81 129/67 122/73 Pulse Oximetry 100 100 99 05/14/18 20:00 05/15/18 00:00 05/15/18 04:00 Temperature 97.9 F 97.6 F 98.8 F Pulse Rate 89 78 84 Respiratory Rate 18 18 18 Blood Pressure 106/55 L 119/64 119/61 Pulse Oximetry 98 98 95 Intake & Output 05/14/18 05/15/18 05/15/18 18:59 06:59 18:59 Intake Total 1200 / 1200 860 / 860 Balance 1200 / 1200 860 / 860 Weight 57.8 kg Intake: IV 1200 / 1200 200 / 200 LR 1000 mL Inj 1,000 ML @ 30 1000 / 1000 mls/hr IV.CONT .Q24H ONE Rx#: [id number] Unasyn Inj 3 GM In NS Inj 100 200 / 200 200 / 200 ML @ 200 mls/hr IV.SIG Q6H NABOR Rx#:[id number] Oral 660 / 660 Other: # Voids 5 Date of Last Bowel Movement 05/13/18 05/15/18 # Bowel Movements 1 - Constitutional no acute distress - Routine HEENT Exam Head: Present: normocephalic Comments: left mandible/neck region edema mild - drains in place - no pus/heme noted, no tenderness to palpation dressing in place trach midline intraorally - mandible stable, bite in pt's occlusion IMF wire/screws in position no elevation fom/tongue/no deviation of uvula, no intraoral edema noted tissues pink/well perfused- surgical site hemostatic Results - Labs CBC & Chem 7: 05/14/18 11:11 05/13/18 04:13 Laboratory Results - last 24 hr 05/14/18 05/14/18 05:45 11:11 WBC 21.9 H RBC 3.90 L Hgb 10.5 L Hct 33.3 L MCV 85.4 MCH 26.8 L MCHC 31.4 L RDW 14.6 Plt Count 321 MPV 9.1 Prelim Diff (Auto) Slide review pending Neut % (Auto) 84.9 H Lymph % (Auto) 5.0 L [place] % (Auto) 10.0 H Eos % (Auto) 0.0 Baso % (Auto) 0.1 Neut # (Auto) 18.6 H Lymph # (Auto) 1.1 [place] # (Auto) 2.2 H Eos # (Auto) 0.0 Baso # (Auto) 0.0 WBC Differential Manual diff final . Diff Scan Auto diff confirmed Seg Neuts % (Manual) 81 H Band Neuts % (Manual) 10 H Lymphocytes % (Manual) 1 L Monocytes % (Manual) 7 Myelocytes % (Man) 1 H Abs Neuts (Manual) 19.0 H Differential Comment . Dohle Bodies Present H Platelet Estimate Normal Platelet Morphology Normal Microbiology 05/11/18 15:15 Blood - Peripheral Aerobic Blood Culture - Preliminary No growth in 3 days 05/11/18 15:15 Blood - Peripheral Anaerobic Blood Culture - Preliminary No growth in 3 days 05/11/18 15:42 Blood - Peripheral Aerobic Blood Culture - Preliminary No growth in 3 days 05/11/18 15:42 Blood - Peripheral Anaerobic Blood Culture - Preliminary No growth in 3 days 05/11/18 19:40 Abscess - Cheek Gram Stain - Final 05/11/18 19:40 Abscess - Cheek Wound Culture - Final Assessment and Plan - Plan POD 2 s/p debridement/ I&D left mandible - stabilization of left mandible fracture with IMF screws /wires no pus noted POD 4 s/p i/d left mandible abscess - Dr. Ulloa s/p orif left mandible angle fracture and extraction of tooth #28 march 2018 clinically pt appears improving wbc noted ID following gram positive cocci - final pending wire cutters at bedside removed the 2 radha drains left mandible/neck none remaining ok to d/c to home fom OMS standpoint; send with home with wireline field operator - wire cutters with pt at all time for emergency airway management maintain good oral hygiene full liquid diet - juices, soups, ensure, shakes
[2018-05-15 08:47] VITALS: PULSE 88; RESP 23; TEMP 98.4; O2SAT 98
[2018-05-15 09:06] LABS: Baso % (Auto) 0.3 % (0.0-2.0); Hematocrit 31.8 % (39.0-51.0); Hemoglobin 9.9 gm/dL (13.0-17.0); Lymph # (Auto) 1.6 th/mm3 (1.0-4.8); Mean Corpuscular Hemoglobin 26.5 pg (27.0-34.0); Mean Corpuscular Volume 85.6 fL (80.0-100.0); Mean Platelet Volume 9.3 fL (7.0-11.0); Mono # (Auto) 2.3 th/mm3 (0.0-0.9); Mono % (Auto) 16.2 % (0.0-8.0); Neut # (Auto) 10.4 th/mm3 (1.8-7.7); Neut % (Auto) 72.5 % (16.0-70.0); Platelet Count 310 th/mm3 (150-450); Red Blood Count 3.72 mil/mm3 (4.50-5.90); Red Cell Distribution Width 14.8 % (11.6-17.2); White Blood Count 14.4 th/mm3 (4.0-11.0)
[2018-05-15 09:09] LABS: Anion Gap 10 meq/L (5-15); Blood Urea Nitrogen 9 mg/dL (7-18); Calcium 8.2 mg/dL (8.5-10.1); Carbon Dioxide 23.8 meq/L (21.0-32.0); Chloride 108 meq/L (98-107); Glomerular Filtration Rate Greater Than 89 mL/min (>89); Glucose,Random 72 mg/dL (74-106); Potassium 3.3 meq/L (3.5-5.1); Sodium 142 meq/L (136-145)
[2018-05-15 09:50] LABS: Lymphocytes 15 % (9-44); Metamyelocytes 1 % (0-1); Monocytes 10 % (0-8)
[2018-05-15 09:51] LABS: Ovalocytes 1+; Platelet Estimate Normal (Normal); Platelet Morphology Normal (Normal); Toxic Granulation 1+
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
[2018-05-15] MEDS ORDERED: Amoxicillin/Clavulanate 250 MG/5 ML Susp 100 ML Bottle PO SCH (13:00)
--- NOTE | 2018-05-15 13:55 | P.DCO ---
- Diagnosis (1) Mandibular abscess Status: Acute (2) Pericarditis Status: Acute - Home Health Nursing Order: Medical education, Signs/symptoms of disease process, Nursing assessment with vital signs - Case Management Consult Yes - Certification I have seen patient Ramiro Garzon on 05/15/18. My clinical findings support the need for the requested home health care services because: Medication compliance is questionable, Infection with risk of complications I certify that my clinical findings support that this patient is homebound because: Need for psychosocial assistance
== END 2018-05-15 14:03 | disposition home health service (06) ==
LOC: NEPC 04:33 → NEDA 04:33 → NEPFCDU 08:30 → N04 17:26
PROVIDERS: ADMIT Internal Medicine; ATTEND Internal Medicine
PROC: ORIFMAN (2018-05-13 15:53)